=== PATIENT | female | born 1960 | race Caucasian/White ===

== ENCOUNTER 2023-11-07 15:14 | Emergency (ER) | payer OTHER, SELFPAY ==
[2023-11-07 15:23] VITALS: BP 141/85; BMI 34.7
--- NOTE | 2023-11-07 15:28 | EDRN ---
In triage pt asking 'can you guys make me disabled here cause I cant work now'
[2023-11-07 17:02] LABS: % Basophils 0.9 % (0-2); % Eosinophils 4.1 % (0-6); % Immature Granulocytes 0.2 % (0-0.5); % Neutrophils 48.8 % (42.2-75.2); Absolute Basophils 0.1 10^3/uL (0-0.2); Absolute Eosinophils 0.2 10^3/uL (0-0.7); Absolute Lymphocytes 2.2 10^3/uL (1.2-3.4); Absolute Monocytes 0.4 10^3/uL (0.1-0.6); Absolute Neutrophils 2.7 10^3/uL (1.4-6.5); Hematocrit 38.3 % (37.0-47.0); Hemoglobin 12.9 g/dL (12.0-16.0); Mean Corp Hgb Conc. 33.7 g/dL (33.0-37.0); Mean Corpuscular Hgb 30.2 pg (27.0-31.0); Mean Corpuscular Volume 89.7 fL (81.0-99.0); Mean Platelet Volume 10.3 fL (7.4-10.4); Nucleated Red Blood Cells % 0 %; Platelet Count 204 10^3/uL (130-400); Red Blood Cell Count 4.27 10^6/uL (4.20-5.40); Red Cell Dist. Width 13.5 % (11.5-14.5); White Blood Cell Count 5.6 10^3/uL (4.8-10.8)
[2023-11-07 17:15] LABS: ALT (SGPT) 21 U/L (0-35); AST (SGOT) 20 U/L (14-36); Albumin 4.3 g/dl (3.5-5.0); Alkaline Phosphatase 97 U/L (38-126); Blood Urea Nitrogen 15 mg/dl (7-17); Calcium 9.4 mg/dl (8.4-10.2); Carbon Dioxide 27 mmol/L (22-30); Chloride 102 mmol/L (98-107); Estimated Creatinine Clearance 102 ml/min; Glucose 110 mg/dl (70-99); Sodium 137 mmol/L (135-145); Total Bilirubin 0.3 mg/dl (0.2-1.3); Total Protein 7.2 g/dl (6.3-8.2); eGFR > 60.00
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
[2023-11-07 17:26] LABS: Troponin I < 0.012 ng/ml
== END 2023-11-07 18:23 | disposition home or self-care (01) ==
LOC: EMR 15:14
PROVIDERS: Physician Assistant; EMERGENCY PHYSICIAN Emergency Medicine; FAMILY PHYSICIAN Family Medicine
DX: R07.89 Other chest pain (principal); J45.909 Unspecified asthma, uncomplicated; I10 Essential (primary) hypertension; E78.00 Pure hypercholesterolemia, unspecified; E11.9 Type 2 diabetes mellitus without complications; K21.9 Gastro-esophageal reflux disease without esophagitis
CPT/HCPCS: 99283; 71046; 80053; 84484; 85025; 93005

== ENCOUNTER → 2024-05-09 10:50 | Outpatient (REF) | payer BC, SELFPAY | LOC: HWRAD 10:50 | PROVIDERS: ATTENDING PHYSICIAN Family Medicine Adolescent Medicine; FAMILY PHYSICIAN Physician Assistant | DX: E04.0 Nontoxic diffuse goiter (principal) | CPT/HCPCS: 76536 ==

== ENCOUNTER → 2024-06-10 14:20 | Outpatient (REF) | payer BC, SELFPAY | LOC: RAD 14:20 | PROVIDERS: ATTENDING PHYSICIAN Physician Assistant | DX: G89.29 Other chronic pain (principal); M54.41 Lumbago with sciatica, right side; M54.42 Lumbago with sciatica, left side; R32 Unspecified urinary incontinence | CPT/HCPCS: 72110 ==

== ENCOUNTER → 2024-08-15 06:34 | Outpatient (REF) | payer BC, SELFPAY | LOC: MRI 06:34 | PROVIDERS: ATTENDING PHYSICIAN Physician Assistant; FAMILY PHYSICIAN Family Medicine | DX: M54.16 Radiculopathy, lumbar region (principal); R32 Unspecified urinary incontinence | CPT/HCPCS: 72148 ==

== ENCOUNTER → 2024-11-21 15:58 | Outpatient (REF) | payer BC, SELFPAY | LOC: RCS 15:58 | PROVIDERS: ATTENDING PHYSICIAN Pain Medicine Interventional Pain Medicine | DX: Z01.818 Encounter for other preprocedural examination (principal) | CPT/HCPCS: 93005 ==

== ENCOUNTER → 2025-01-09 11:31 | Outpatient (REF) | payer BC, SELFPAY | LOC: CLAB 11:31 | PROVIDERS: ATTENDING PHYSICIAN Otolaryngology | DX: J31.0 Chronic rhinitis (principal); J01.01 Acute recurrent maxillary sinusitis | CPT/HCPCS: 87070; 87147; 87186; 87205 ==

== ENCOUNTER → 2025-04-21 07:03 | Outpatient (REF) | payer BC, SELFPAY ==
[2025-04-21 09:27] LABS: Hematocrit 38.8 % (37.0-47.0); Hemoglobin 13.1 g/dL (12.0-16.0); Mean Corp Hgb Conc. 33.8 g/dL (33.0-37.0); Mean Corpuscular Volume 88.8 fL (81.0-99.0); Nucleated Red Blood Cells % 0 %; Platelet Count 210 10^3/uL (130-400); Red Cell Dist. Width 13.2 % (11.5-14.5)
[2025-04-21 09:32] LABS: ALT (SGPT) 26 U/L (0-35); AST (SGOT) 22 U/L (14-36); Albumin 4.4 g/dl (3.5-5.0); Alkaline Phosphatase 96 U/L (38-126); Blood Urea Nitrogen 16 mg/dl (7-17); Calcium 9.6 mg/dl (8.4-10.2); Carbon Dioxide 26 mmol/L (22-30); Chloride 107 mmol/L (98-107); Glucose 130 mg/dl (70-99); HDL Cholesterol 50 mg/dl; LDL Cholesterol, Calculated 83 mg/dl; Potassium 4.1 mmol/L (3.5-5.1); Sodium 139 mmol/L (135-145); Total Protein 7.3 g/dl (6.3-8.2); Very Low Density Lipoprotein 24 mg/dl (0-30); eGFR > 60.00
[2025-04-21 09:42] LABS: Glycohemoglobin (HgbA1c) 5.8 % (4.0-5.6)
[2025-04-21 10:02] LABS: TSH 2.08 uIU/ml (0.47-4.68)
[2025-04-21 10:27] LABS: Vitamin B12 792 pg/ml (239-931)
== END ==
LOC: HWLAB 07:03
PROVIDERS: FAMILY PHYSICIAN Physician Assistant
DX: E11.65 Type 2 diabetes mellitus with hyperglycemia (principal); K75.9 Inflammatory liver disease, unspecified; F33.1 Major depressive disorder, recurrent, moderate
CPT/HCPCS: 36415; 80053; 80061; 82248; 82607; 83036; 84100; 84146; 84443; 85025

== ENCOUNTER → 2025-06-30 06:45 | Outpatient (REF) | payer MEDICARE, SELFPAY | LOC: MRI 06:45 | PROVIDERS: ATTENDING PHYSICIAN Orthopaedic Surgery; FAMILY PHYSICIAN Physician Assistant | DX: M25.511 Pain in right shoulder (principal); M19.011 Primary osteoarthritis, right shoulder | CPT/HCPCS: 72141; 73221 ==

== ENCOUNTER → 2025-07-08 09:46 | Outpatient (REF) | payer MEDICARE, SELFPAY ==
[2025-07-08 12:09] LABS: Hematocrit 39.2 % (37.0-47.0); Hemoglobin 13.0 g/dL (12.0-16.0); Mean Corp Hgb Conc. 33.2 g/dL (33.0-37.0); Mean Corpuscular Volume 94.0 fL (81.0-99.0); Nucleated Red Blood Cells % 0 %; Platelet Count 210 10^3/uL (130-400); Red Cell Dist. Width 13.5 % (11.5-14.5)
[2025-07-08 13:49] LABS: ALT (SGPT) 21 U/L (0-35); AST (SGOT) 19 U/L (14-36); Albumin 4.4 g/dl (3.5-5.0); Alkaline Phosphatase 93 U/L (38-126); Blood Urea Nitrogen 16 mg/dl (7-17); Calcium 9.6 mg/dl (8.4-10.2); Carbon Dioxide 30 mmol/L (22-30); Chloride 102 mmol/L (98-107); Glucose 90 mg/dl (70-99); Potassium 4.5 mmol/L (3.5-5.1); Sodium 139 mmol/L (135-145); Total Protein 7.3 g/dl (6.3-8.2); eGFR > 60.00
[2025-07-09 10:33] LABS: Lyme Antibody Screen, EIA Negative (Negative)
== END ==
LOC: HWLAB 09:46
PROVIDERS: ATTENDING PHYSICIAN Surgery; FAMILY PHYSICIAN Physician Assistant
DX: I10 Essential (primary) hypertension (principal); R42 Dizziness and giddiness; F17.200 Nicotine dependence, unspecified, uncomplicated
CPT/HCPCS: 36415; 80053; 84443; 85025; 86618

== ENCOUNTER 2025-08-17 13:59 | Emergency (ER) | payer MEDICARE, SELFPAY ==
[2025-08-17 14:14] VITALS: BP 162/77
[2025-08-17 14:45] LABS: Hematocrit 38.6 % (37.0-47.0); Hemoglobin 13.5 g/dL (12.0-16.0); Mean Corp Hgb Conc. 35.0 g/dL (33.0-37.0); Mean Corpuscular Volume 86.4 fL (81.0-99.0); Nucleated Red Blood Cells % 0 %; Platelet Count 235 10^3/uL (130-400); Red Cell Dist. Width 13.2 % (11.5-14.5)
[2025-08-17 14:52] LABS: ALT (SGPT) 21 U/L (0-35); AST (SGOT) 20 U/L (14-36); Albumin 4.4 g/dl (3.5-5.0); Alkaline Phosphatase 115 U/L (38-126); Blood Urea Nitrogen 12 mg/dl (7-17); COVID-19 Antigen Negative (Negative); Calcium 9.9 mg/dl (8.4-10.2); Carbon Dioxide 27 mmol/L (22-30); Chloride 104 mmol/L (98-107); Glucose 104 mg/dl (70-99); Potassium 4.2 mmol/L (3.5-5.1); Sodium 138 mmol/L (135-145); Total Protein 7.7 g/dl (6.3-8.2); eGFR > 60.00
[2025-08-17 17:56] VITALS: BMI 32.8
[2025-08-17] MEDS: SOLU-CORTEF 200 MG IV (18:04)
[2025-08-17] MEDS: BENADRYL 50 MG IV (18:04)
[2025-08-17 18:05] VITALS: BP 146/73
[2025-08-17 18:25] LABS: INR 0.98; PT 13.1 Sec (11.4-14.6)
[2025-08-17 18:26] LABS: APTT 26.1 Sec (23.4-35.0)
[2025-08-17 18:41] LABS: Troponin I < 0.012 ng/ml
[2025-08-17 18:44] VITALS: BP 145/75
--- NOTE | 2025-08-17 18:44 | ED.GENMED ---
History of Present Illness
General
Chief Complaint: Breathing Problem
Source: patient
Exam Limitations: none
Time Seen by Provider: 08/17/25 17:04
Nursing documentation reviewed up to this point in time: agreed with
History of Present Illness
History of Present Illness:
65-year-old female with a past medical history of COPD, hypertension, hyperlipidemia, diabetes who presents to the emergency department for evaluation of shortness of breath. Patient reports onset of symptoms 4 days ago and have been constant since
that time. She reports shortness of breath associate with a sensation of tightness in her chest. She says she has not been coughing. She has not had any chest pain. She denies any swelling or pain in the legs. Denies any fever or chills. She
denies any URI symptoms.
Past History
Past History
ED Past Medical History: GERD, HTN, Hypercholesterolemia, NIDDM and Other (Emphasema)
ED Past Surgical History: Other (Hernia repair X2)
Social History
Tobacco: Former smoker
Alcohol: None
Personal:
Living: with family
Family History
Family History: Other (Mother with diabetes and COPD)
Review of Systems
Review of Systems
All Other Systems: ROS reviewed and negative except as documented in HPI and ROS
Constitutional: Denies fever or chills
EENT: Denies sore throat or runny nose
Respiratory: Reports trouble breathing; Denies cough
Cardiac: Denies chest pain or palpitations
ABD/GI: Denies abdominal pain, nausea, vomiting or diarrhea
: Denies flank pain
Musculoskeletal: Denies edema, neck pain or back pain
Neurological: Denies headache
Phy Exam
Physical Exam
Physical Exam:
General: Awake, alert, oriented x3; no acute distress
Head: Normocephalic, atraumatic
Eyes: Conjunctiva normal
Throat: Airway intact, handling secretions
Neck: Trachea midline, no JVD
Lungs: Patient has mild tachypnea but no hypoxia; lungs sound clear bilaterally without focal wheezing or rales
Heart: Regular rate and rhythm, no murmurs, gallops, or rubs
Abd: Soft, non distended, nontender
Neuro: Grossly intact
Skin: Warm and dry
Extremities: No edema in extremities, no calf tenderness, equal pulses in all extremities
Scores
Heart Failure Risk
Heart Failure Risk Score: Not Applicable
Heart Score for Chest Pain Patients
STEMI patient?: Not applicable
Withdrawal Assessment of Alcohol
Withdrawal Assessment Completed?: Not applicable
Course
Orders/Labs/Results
Orders:
Orders
08/17/25 14:01
Electrocardiogram (*1) Urgent
Reason for Study: Chest Pain
EKG- Treatment ONCE
08/17/25 14:18
CR Chest - 2 Views Urgent
Comment:
Reason For Exam: shortness of breath
08/17/25 14:24
CMP [Comprehensive Metabolic Panel] Urgent
COVID-19 Antigen Urgent
Source: Nasal Swab
Complete Blood Count/With Diff Urgent
Influenza A+B Rapid Molecular Urgent
KARTHIK Source: Nasal Swab
Specimen Description:
08/17/25 17:30
CT Chest PE Study Urgent
Comment:
Reason For Exam: sob, tachypnea, clear lungs
08/17/25 17:33
Diphenhydramine [Benadryl] 50 mg IV NOW STA
Hydrocortisone Sod Succinate [Solu-Cortef] 200 mg IV NOW STA
08/17/25 18:03
NT-proBNP Urgent
PTT Urgent
Prothrombin Time Urgent
Troponin I Urgent
Abnormal Lab Results
08/17/25
14:24
Glucose 104 H mg/dl
(70-99)
08/17/25 14:24
08/17/25 14:24
Vital Signs
Initial and Last Documented VS:
Initial Vital Signs
Temp Pulse Resp BP Pulse Ox
37.3 C 71 24 162/77 99
08/17/25 14:14 08/17/25 14:14 08/17/25 14:14 08/17/25 14:14 08/17/25 14:14
Last Documented Vital Signs
Temp Pulse Resp BP Pulse Ox
37.3 C 73 15 139/67 98
08/17/25 14:14 08/17/25 19:15 08/17/25 19:15 08/17/25 19:00 08/17/25 19:15
MDM/Problems Addressed
Differential Diagnosis Includes:
COPD exacerbation, pneumonia, pneumothorax, bronchitis, anemia, PE
MDM/Problems Addressed:
65-year-old female with history as noted presents for evaluation of shortness of breath and tightness in the chest in the absence of any cough or chest pain. Worsening over the past few days. Vitals and exam are as above she has some mild
tachypnea but is not hypoxic and is not tachycardic. Notably lungs sound clear without wheezing. She had initial labs in triage including a CBC which showed no anemia or leukocytosis, CMP no clinically significant abnormalities. She has an
undetectable troponin and a normal proBNP. COVID and flu tests negative. Chest x-ray reviewed by me shows no acute abnormality. COPD exacerbation certainly high in the differential diagnosis but in the absence of wheezing we will plan to send for
CT chest to rule out PE. She has no edema on chest x-ray or exam, normal proBNP, low suspicion for CHF. She has no chest pain and constant dyspnea which is inconsistent with angina especially with normal EKG and negative troponin. Monitor very
closely here reassess after the above
CT chest shows no PE or any other acute abnormalities. Patient has been clinically stable throughout duration of ER observation without any hypoxia. On my reassessment she has no tachypnea, no tachycardia is normotensive afebrile with a pulse ox
of 98% on room air. Suspect this is likely a mild COPD exacerbation. Will plan to treat with a course of steroids. She is stable for outpatient management. She feels comfortable with this plan. All questions answered.
Chronic conditions affecting care:
COPD
*Radiology
Radiology exam reviewed: preliminary read by ED provider and radiology read reviewed
*Pulse Oximetry
SaO2: 99
Oxygen Mode of Delivery: Room air
Patient hypoxic: no (99%)
*EKG
Interpreted by ED Provider?: Yes
Comparison EKG: no changes
Heart Rate: 64
Rate: normal
Rhythm: sinus
[place]: normal axis
Interval: normal interval
QRS Pattern: normal QRS
Ischemia: non-specific ST changes
*Critical Care Note
Total Time (30-74mins, 75-104mins- exclusive of procedures): Not Applicable
Data Reviewed
Source: patient and records
ED Attending Note
-
Portions of this chart may have been created with voice recognition software.� Occasional wrong word or��sound alike� substitutions may have occurred due to the inherent limitations of voice recognition software.
Discharge Plan
Departure
Patient Disposition: Home (Routine Discharge)
Date of Disposition: 08/17/25
Time of Disposition: 20:15
Patient with high blood pressure during this ER visit?: Yes
Discharge Problem:
COPD exacerbation
Instructions: Shortness of Breath (Dyspnea) (DC), COPD exacerbation (DC)
Prescriptions:
New
prednisone 10 mg Tablet
See Rx Instructions .ROUTE .COMPLEX Qty: 45 0RF
Rx Instructions:
Take By Mouth:
50 mg daily x3 days, 40 mg daily x3 days,
30 mg daily x3 days, 20 mg daily x3 days,
10 mg daily x3 days
No Action
aspirin [Aspir-Low] 81 MG tablet,delayed release (DR/EC)
81 mg PO QPM
omeprazole 20 MG capsule,delayed release(DR/EC)
40 mg PO DAILY
pravastatin 20 MG tablet
10 mg PO HS
escitalopram oxalate 10 MG tablet
10 mg PO DAILY
ranitidine HCl 300 MG tablet
300 mg PO QPM
liraglutide [Victoza 2-Alejo] 0.6 MG/0.1 ML pen injector
12 mg SQ DAILY
[id number] serr [Osteo Bi-Flex (5-Loxin)] 1 EACH tablet
1 ea PO DAILY
mirabegron [Myrbetriq] 50 MG tablet extended release 24 hr
50 mg PO DAILY
umeclidinium-vilanterol [Anoro Ellipta] 1 EACH blister with device
1 ea IH DAILY
diphenhydramine-zinc acetate [Anti-Itch(diphenhyd) with Zinc] 28 GM cream
28 gm TP QPM
fexofenadine-pseudoephedrine [Arianne-D 24 Hour] 1 EACH tablet extended release 24 hr
1 ea PO DAILY
losartan 50 MG tablet
50 mg PO DAILY
metformin 750 MG tablet extended release 24 hr
750 mg PO DAILY Qty: 0 0RF
Rx Instructions:
HOLD post cath- OK to resume on 11/11 in AM
Referrals:
Ginger Molina PA-C [Family Provider, Family Practice] - Follow up in 1 week
Activity Restrictions/Additional Instructions:
Thank you for visiting the Emergency Department at [facility].
1. Please schedule a follow up appointment as directed. Call first thing tomorrow morning to make an appointment.
2. If indicated, please take your medications as instructed and indicated on discharge paperwork.
3. If any of your symptoms do not improve, or persist, or become more severe within 6-12 hours, please return to the emergency department for further care.
4. Please return to the emergency department if you develop a headache, neck pain/stiffness, fever greater than 100.4F, chest pain, shortness of breath, persistent nausea, vomiting, slurred speech, difficulty walking, numbness/tingling, weakness,
signs of infection or any other symptoms that are worrisome to you.
Please call [phone] if you have any questions.
Interventions
Interventions:
*General Assessment Last Done: 08/17/25 18:13
*Neglect/Abuse Screening Last Done: 08/17/25 14:14
*ED COVID-19 Vaccine History Last Done: 08/17/25 14:14
*ED Influenza Vaccine History Last Done: 08/17/25 14:14
[facility] Fall Risk Assessment Tool Last Done: 08/17/25 18:13
*Risk Screen - Suicide (C-SSRS) Last Done: 08/17/25 14:14
Discharge Date and Time
Print Language: FRENCH
[2025-08-17 19:00] VITALS: BP 139/67
== END 2025-08-17 20:35 | disposition home or self-care (01) ==
LOC: EMR 13:59
PROVIDERS: Emergency Medicine; EMERGENCY PHYSICIAN Emergency Medicine; FAMILY PHYSICIAN Physician Assistant
DX: J44.1 Chronic obstructive pulmonary disease with (acute) exacerbation (principal); M79.601 Pain in right arm; Z11.52 Encounter for screening for COVID-19; I10 Essential (primary) hypertension; E78.00 Pure hypercholesterolemia, unspecified; E11.9 Type 2 diabetes mellitus without complications; K21.9 Gastro-esophageal reflux disease without esophagitis; J43.9 Emphysema, unspecified; M19.90 Unspecified osteoarthritis, unspecified site; F41.9 Anxiety disorder, unspecified; Z87.891 Personal history of nicotine dependence; Z88.8 Allergy status to other drugs, medicaments and biological substances; Z91.041 Radiographic dye allergy status; Z91.040 Latex allergy status; Z98.84 Bariatric surgery status
CPT/HCPCS: 99285; 96374; 96375; 71046; 71275; 80053; 83880; 84484; 85025; 85610; 85730; 87502; 87811; 93005; Q9967